=== PATIENT | male | born 1985 | race African-American/Black ===

== ENCOUNTER 2017-05-01 06:38 | Emergency (ER) | payer SELFPAY ==
[~2017-05-01] VITALS: Ht 170.2 cm; Wt 68.0 kg
[2017-05-01 06:46] VITALS: BP 135/81; PULSE 81; RESP 16; TEMP 98.2; O2SAT 97
[2017-05-01] MEDS ORDERED: TETANUS/DIPHTHERIA TOXOID ADULT 0.5 ML VIAL IM ONE (07:15)
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
[2017-05-01 10:20] VITALS: BP 123/75
== END 2017-05-01 10:27 | disposition home or self-care (01) ==
LOC: NEPC 06:38
DX: S00.11XA Contusion of right eyelid and periocular area, initial encounter (principal); Z23 Encounter for immunization; Z72.0 Tobacco use; Z72.89 Other problems related to lifestyle; Y04.2XXA Assault by strike against or bumped into by another person, initial encounter
CPT/HCPCS: 70450; 70486; 90471; 90714; 99284